=== PATIENT | female | born 1950 | race Caucasian/White ===

== ENCOUNTER 2016-09-25 08:46 | Emergency (ER) | payer BC ==
[2016-09-25 09:03] VITALS: BP 126/69; PULSE 73; TEMP 98; BMI 21.2
--- NOTE | 2016-09-25 09:53 | PDOC ---
History of Present Illness - General History Source: Patient, Old Records Exam Limitations: No Limitations <Jamilah Dia - Last Filed: 09/25/16 09:49> - History of Present Illness Initial Comments: 09/25/16 10:11 Patient is a 66 year old female with significant medical hx of asthma and allergies who is presenting to the ED with seven months of full body rash and six weeks of facial rash. The patient reports shes had an itching, full body rash for the past seven months that erupts as patchy, circular areas of inflammation and irritation. She states that shes been followed by an card brusher and has had multiple tests done that were negative. The patient notes that she is trying an elimination diet to help pinpoint the source of her rash. Patient also complains of an itching rash to her face that began six weeks ago. It started as a localized area to the bridge of her nose, beneath where her glasses rest on her face. She states that she went through a two week course of medication given by her loin trimmer which relieved her symptoms temporarily. Her rash beneath her nose returned a few days later and she also developed an area of rash to left maxilla, which was not there before. The patient is followed closely by her loin trimmer and has been seen by him yesterday. She began a course of valtrex that she did for three days and stopped due to side effects. Patient states she has been given a cream treatment afterwards by loin trimmer that she plans on starting today. She notes that she is going to follow up with him on Saturday. Denies any fever, chills. Drawer Maker: Aashish Velasquez MD <Corinne Weldon - Last Filed: 09/25/16 10:27> - General Chief Complaint: Redness To Affected Area Stated Complaint: SWELLING ON EYE/FACE, RED SPOTS Time Seen by Provider: 09/25/16 09:36 Past History - Past Medical History Asthma: Yes Cardiac Disorders: Yes (mvp) Other medical history: allergies,tinitis,eczema - Surgical History Abdominal Surgery: Yes (lt ovary,mass,laproscopic) - Psycho/Social/Smoking Cessation Hx Anxiety: No Suicidal Ideation: No Smoking History: Former smoker Have you smoked in the past 12 months: No Information on smoking cessation initiated: No Hx Alcohol Use: No Drug/Substance Use Hx: No Substance Use Type: None <Jamilah Dia - Last Filed: 09/25/16 09:49> <Corinne Weldon - Last Filed: 09/25/16 10:27> - Past Medical History Allergies/Adverse Reactions: Allergies Allergy/AdvReac Type Severity Reaction Status Date / Time amoxicillin Allergy Verified 09/25/16 08:57 amoxicillin trihydrate Allergy Verified 09/25/16 08:57 [From Augmentin] clotrimazole Allergy Verified 09/25/16 08:57 erythromycin base Allergy Verified 09/25/16 08:57 fluticasone propionate Allergy Verified 09/25/16 08:57 [From Advair Diskus] hydrochlorothiazide Allergy Verified 09/25/16 08:57 [From Dyazide] indomethacin Allergy Verified 09/25/16 08:57 levofloxacin [From Levaquin] Allergy Verified 09/25/16 08:57 mometasone furoate Allergy Verified 09/25/16 08:57 [From Nasonex] montelukast sodium Allergy Verified 09/25/16 08:57 [From Singulair] potassium clavulanate Allergy Verified 09/25/16 08:57 [From Augmentin] prednisone Allergy Verified 09/25/16 08:57 salmeterol xinafoate Allergy Verified 09/25/16 08:57 [From Advair Diskus] triamterene [From Dyazide] Allergy Verified 09/25/16 08:57 valacyclovir Allergy Verified 09/25/16 08:57 Home Medications: Ambulatory Orders Mupirocin Cream [Bactroban 2% Cream -] 1 applic TID 09/25/16 Review of Systems - Review of Systems Comments:: 09/25/16 10:13 GENERAL/CONSTITUTIONAL: No fever or chills. No weakness. HEAD, EYES, EARS, NOSE AND THROAT: No change in vision. No ear pain or discharge. No sore throat. CARDIOVASCULAR: No chest pain or shortness of breath. RESPIRATORY: No cough, wheezing, or hemoptysis. GASTROINTESTINAL: No nausea, vomiting, diarrhea or constipation. GENITOURINARY: No dysuria, frequency, or change in urination. MUSCULOSKELETAL: No joint or muscle swelling or pain. No neck or back pain. ENDOCRINE: No increased thirst. No abnormal weight change. SKIN: Itching rash to face, torso, and extremities. NEUROLOGIC: No headache, vertigo, loss of consciousness, or change in strength/ sensation. <Corinne Weldon - Last Filed: 09/25/16 10:27> *Physical Exam - Vital Signs Last Vital Signs Temp Pulse Resp BP Pulse Ox 98.0 F 73 18 126/69 100 09/25/16 08:58 09/25/16 08:58 09/25/16 08:58 09/25/16 08:58 09/25/16 08:58 <Jamilah Dia - Last Filed: 09/25/16 09:49> - Vital Signs Last Vital Signs Temp Pulse Resp BP Pulse Ox 98.0 F 73 18 126/69 100 09/25/16 08:58 09/25/16 08:58 09/25/16 08:58 09/25/16 08:58 09/25/16 08:58 - Physical Exam Comments: 09/25/16 10:14 GENERAL: Awake, alert, and fully oriented, in no acute distress HEAD: No signs of trauma EYES: PERRLA, EOMI, sclera anicteric, conjunctiva clear ENT: Auricles normal inspection, hearing grossly normal, nares patent, oropharynx clear without exudates. Moist mucosa NECK: Normal ROM, supple, no lymphadenopathy, JVD, or masses LUNGS: Breath sounds equal, clear to auscultation bilaterally. No wheezes, and no crackles HEART: Regular rate and rhythm, normal S1 and S2, no murmurs, rubs or gallops ABDOMEN: Soft, nontender, normoactive bowel sounds. No guarding, no rebound. No masses EXTREMITIES: Normal range of motion, no edema. No clubbing or cyanosis. No cords, erythema, or tenderness NEUROLOGICAL: Cranial nerves II through XII grossly intact. Normal speech, normal gait SKIN: Warm, Dry, normal turgor. Patchy, circular raised lesions that appeared scaly on her extremities and torso. Erythematous raised confluent lesion to the bridge of the nose. Left maxilla erythema with mild induration and edema. Two small areas of erythema and excoriation under the nose. HEMATOLOGIC/LYMPHATIC: No anemia, easy bleeding, or history of blood clots. ALLERGIC/IMMUNOLOGIC: No hives or skin allergy. <FatemehCorinne - Last Filed: 09/25/16 10:27> Medical Decision Making - Medical Decision Making 09/25/16 09:49 66 y/o female with h/o asthma and multiple allergies presents to the ED with chronic pruritic patchy rash to her body and 6-week h/o rash to her nose and recent breakout on her left maxilla. DDx includes but is not limited to: herpes simplex, staph, non-specific skin eruption. Plan: 1. Recommended claritin or benadryl and claritin 2. Follow-up with loin trimmer 3. Return to the ED if Sx persist, worsen or new Sx arise. <Jamilah Dia - Last Filed: 09/25/16 09:49> *DC/Admit/Observation/Transfer - Discharge Dispostion Admit: No - Attestations Physician Attestion: 09/25/16 09:52 I, Dr. Jamilah Dia, attest that the scribes documentation that appears above has been prepared under my direction and personally reviewed by me in its entirety. I confirmed that the note above accurately reflects all work, treatment, procedures, and medical decision-making performed by me. <Jamilah Dia - Last Filed: 09/25/16 09:49> - Attestations Scribe Attestion: 09/25/16 10:27 Documentation prepared by Corinne Weldon, acting as medical receptionist biller for Jamilah Dia MD. <Corinne Weldon - Last Filed: 09/25/16 10:27> Diagnosis at time of Disposition: Rash and nonspecific skin eruption - Referrals Referrals: Aniket Hatch [Primary Care Provider] - - Patient Instructions Additional Instructions: Follow-up with loin trimmer. You may take claritin or benadryl as needed for itchiness or swelling. Return to the ED if your symptoms persist, worsen or new symptoms arise. Print Language: ANGUILLAN
== END 2016-09-25 10:05 | disposition home or self-care (01) ==
LOC: JER 08:46 → EDBD 08:46 → JER 10:05
DX: R21 Rash and other nonspecific skin eruption (principal); J45.909 Unspecified asthma, uncomplicated; Z87.891 Personal history of nicotine dependence
CPT/HCPCS: 99281-25

== ENCOUNTER 2016-12-18 09:35 | Emergency (ER) | payer BC ==
[2016-12-18 09:52] VITALS: BMI 21.7
[2016-12-18] MEDS ORDERED: ONDANSETRON 4 MG/2 ML VIAL IVPUSH ONE (10:05)
--- NOTE | 2016-12-18 10:05 | PDOC ---
History of Present Illness - General Chief Complaint: Lightheaded Stated Complaint: VOMITING/vertigo Time Seen by Provider: 12/18/16 09:57 History Source: Patient Exam Limitations: No Limitations - History of Present Illness Initial Comments: This is a 66 yof with h/o right ear Meniere's disease, tinnitus, asthma, mitral valve prolapse, eosinophilic esophagitis, and hypoglycemia who presents with vertigo and nausea worsening since she awoke this morning. The symptoms were tolerable when she awoke and she had breakfast and drove to work. While at work , the dizziness worsened significantly and she developed nausea and vomiting to the point where a friend had to drive her here to the ED. She states that this is the worst episode of vertigo she has ever had. She describes imbalance isolated to the right side of her body, from the top of her head to her mid- abdomen. She additionally notes rapid palpitations and cold sweats this morning , but denies any headache, vision changes, confusion, trouble speaking/ swallowing, trouble walking before the symptoms worsened at work, chest pain, shortness of breath, abdominal pain, or other symptoms. Past History - Past Medical History Allergies/Adverse Reactions: Allergies Allergy/AdvReac Type Severity Reaction Status Date / Time amoxicillin Allergy Verified 12/18/16 09:48 amoxicillin trihydrate Allergy Verified 12/18/16 09:48 [From Augmentin] clotrimazole Allergy Verified 12/18/16 09:48 erythromycin base Allergy Verified 12/18/16 09:48 fluticasone propionate Allergy Verified 12/18/16 09:48 [From Advair Diskus] hydrochlorothiazide Allergy Verified 12/18/16 09:48 [From Dyazide] indomethacin Allergy Verified 12/18/16 09:48 levofloxacin [From Levaquin] Allergy Verified 12/18/16 09:48 mometasone furoate Allergy Verified 12/18/16 09:48 [From Nasonex] montelukast sodium Allergy Verified 12/18/16 09:48 [From Singulair] potassium clavulanate Allergy Verified 12/18/16 09:48 [From Augmentin] prednisone Allergy Verified 12/18/16 09:48 salmeterol xinafoate Allergy Verified 12/18/16 09:48 [From Advair Diskus] triamterene [From Dyazide] Allergy Verified 12/18/16 09:48 valacyclovir Allergy Verified 12/18/16 09:48 Home Medications: Ambulatory Orders Mupirocin Cream [Bactroban 2% Cream -] 1 applic TID 09/25/16 Ondansetron [Zofran Odt -] 4 mg SL TID PRN #21 od.tablet 12/18/16 Asthma: Yes Cardiac Disorders: Yes (mvp) Other medical history: tinnitis, minire's disease - Surgical History Abdominal Surgery: Yes (lt ovary,mass,laproscopic) - Suicide/Smoking/Psychosocial Hx Smoking History: Former smoker Have you smoked in the past 12 months: No Information on smoking cessation initiated: No Hx Alcohol Use: No Drug/Substance Use Hx: No Substance Use Type: None Review of Systems - Review of Systems Constitutional: No: Chills, Fever, Unexplained wgt Loss HEENTM: No: Nose Congestion, Throat Pain Respiratory: No: Cough, Shortness of Breath Cardiac (ROS): No: Chest Pain, Palpitations ABD/GI: No: Constipated, Diarrhea, Nausea, Vomiting : No: Burning, Dysuria Musculoskeletal: No: Back Pain, Neck Pain Integumentary: No: Bruising, Rash Neurological: No: Headache, Numbness, Tingling, Weakness, Dizziness Endocrine: No: Unexplained Weight Gain, Unexplained Weight Loss *Physical Exam - Vital Signs Last Vital Signs Temp Pulse Resp BP Pulse Ox 97.4 F L 59 L 18 135/81 100 12/18/16 09:49 12/18/16 09:49 12/18/16 09:49 12/18/16 09:49 12/18/16 09:49 - Physical Exam General Appearance: Yes: Nourished, Appropriately Dressed, Moderate Distress, Other (nontoxic appearing, uncomfortable, laying on hospital bed with head of bed up, eyes closed, holding head in hand, answering questions appropriately) HEENT: positive: EOMI, Normal Voice, Hearing Grossly Normal. negative: Scleral Icterus (R), Scleral Icterus (L), Nasal Congestion Neck: positive: Trachea midline, Supple. negative: Tender, Rigid Respiratory/Chest: positive: Lungs Clear, Normal Breath Sounds. negative: Respiratory Distress, Crackles, Rhonchi, Stridor, Wheezing Cardiovascular: positive: Regular Rhythm, Regular Rate. negative: Murmur Gastrointestinal/Abdominal: positive: Normal Bowel Sounds, Soft. negative: Tender, Organomegaly, Pulsatile Mass, Guarding Musculoskeletal: positive: Normal Inspection. negative: Decreased Range of Motion, Vertebral Tenderness Extremity: positive: Normal Capillary Refill, Normal Inspection, Normal Range of Motion. negative: Tender, Cyanosis Integumentary: positive: Normal Color, Dry, Warm. 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 negative: Facial Droop, Numbness, Sensory Deficit, Confused, Disoriented Heart Score/ECG Review #1 ECG reviewed & interpreted by me at: 11:45 Sinus rhythm, rate of 66, with normal axis and intervals, otherwise normal EKG. ED Treatment Course - LABORATORY CBC & Chemistry Diagram: 12/18/16 11:02 12/18/16 11:02 - ADDITIONAL ORDERS Additional order review: Laboratory Results 12/18/16 12/18/16 11:02 10:23 Sodium 141 Potassium 3.6 Chloride 105 Carbon Dioxide 30 Anion Gap 6 L POC Glucometer 122.46963 Calcium 9.3 Magnesium 2.3 Total Bilirubin 0.6 AST 26 Alkaline Phosphatase 60 Total Protein 6.4 Albumin 3.7 12/18/16 12/18/16 11:02 10:23 RBC 4.77 MCV 87.9 MCHC 33.1 RDW 13.5 MPV 10.3 Neutrophils % 72.7 Lymphocytes % 19.3 Monocytes % 6.6 Eosinophils % 1.0 Basophils % 0.4 POC Glucometer 122.41401 - Medications Given in the ED: ED Medications Discontinued Medications Generic Name Dose Route Start Last Admin Trade Name Freq PRN Reason Stop Dose Admin Diazepam 2 mg 12/18/16 10:06 12/18/16 10:16 Valium Injection - IVPUSH 12/18/16 10:07 2 mg ONCE ONE Administration Sodium Chloride 1,000 mls @ 1,000 mls/hr 12/18/16 10:46 12/18/16 11:03 Normal Saline - IV 12/18/16 11:45 1,000 mls/hr ASDIR STA Administration Meclizine HCl 50 mg 12/18/16 12:00 12/18/16 12:19 Antivert - PO 12/18/16 12:01 50 mg ONCE ONE Administration Ondansetron HCl 8 mg 12/18/16 10:05 12/18/16 10:16 Zofran Injection IVPUSH 12/18/16 10:06 8 mg ONCE ONE Administration Medical Decision Making - Medical Decision Making 66 yof with 20 yr h/o Meniere's disease p/w vertigo and nausea/vomiting. Had vinegar over the weekend which is one trigger for her Meniere's flares. Last head CT for a similar flare was about 5 years ago and was normal per Pt's report. On neurologic exam the only abnormality is sustained horizontal nystagmus on extreme right gaze. Pt does have moderate relief of symptoms after IV Valium and IV Zofran. DDX: Meniere's flare, BPPV, post viral vertigo, labyrithitis. The patient has significant relief with zofran and meclizine. Attempted to call Dr. Claudio (Pt's ENT in [place]) but he was at lunch. The patient feels comfortable with the plan to follow up closely with him and with PCP. Rx is sent for Zofran to Pt's pharmacy, she will pick up man OTC Zofran as well. She is able to walk to the restroom unassisted. Return precautions are discussed. A friend will drive her home; she is discharged from the ED. *DC/Admit/Observation/Transfer Diagnosis at time of Disposition: Meniere disease Qualifiers: Laterality: right Qualified Code(s): H81.01 - Meniere's disease, right ear - Discharge Dispostion Admit: No - Prescriptions Prescriptions: Ondansetron [Zofran Odt -] 4 mg SL TID PRN #21 od.tablet PRN Reason: Nausea - Referrals Referrals: Aniket Hatch [Primary Care Provider] - - Patient Instructions Printed Discharge Instructions: DI for Meniere's Disease Additional Instructions: You were seen in the emergency room for vertigo and nausea/vomiting. This appears to be an exacerbation of your Meniere's disease. We did blood work and an electrocardiogram, and everything was normal. We also gave you IV valium ( which did not help your symptoms) and IV Zofran (which did help with the nausea/ vomiting). Lastly, we gave you a pill of meclizine (50mg) which also helped with your vertigo. Please take zofran as needed for nausea/vomiting according to the prescription instructions. Please also try meclizine (the non-drowsy formula of Dramamine) which is available [id number]. You can take 50 mg of meclizine. Please follow up with your ENT doctor or primary care doctor. You can always return to the ED for new or worsening symptoms.
[2016-12-18] MEDS ORDERED: diazePAM CARPU-JECT 10 MG/2 ML DISP.SYRIN IVPUSH ONE (10:06)
[2016-12-18] MEDS ORDERED: diazePAM CARPU-JECT 10 MG/2 ML DISP.SYRIN ONE (10:10)
[2016-12-18] MEDS ORDERED: ONDANSETRON 4 MG/2 ML VIAL ONE (10:10)
[2016-12-18] MEDS ORDERED: SODIUM CHLORIDE 1,000 ML IV STA (10:46)
[2016-12-18 11:08] LABS: BASOPHIL 0.4 % (0-2.0); MCH 29.1 pg (25.7-33.7); MCHC 33.1 g/dl (32.0-36.0); MEAN CELL VOLUME 87.9 fl (80-96); MEAN PLT VOLUME 10.3 fl (7.5-11.1); NEUTROPHILS 72.7 % (42.8-82.8); PLATELET COUNT 187 K/MM3 (134-434); RDW 13.5 % (11.6-15.6); WHITE BLOOD COUNT 8.8 K/mm3 (4.0-10.0)
[2016-12-18 11:49] LABS: ALBUMIN 3.7 g/dl (3.4-5.0)
--- NOTE | 2016-12-18 11:56 | PDOC ---
Attending Attestation - Resident Resident Name: DanielsPrecious - ED Attending Attestation I have performed the following: I have examined & evaluated the patient, The case was reviewed & discussed with the resident, I agree w/resident's findings & plan, Exceptions are as noted - HPI HPI: 12/18/16 11:53 66-year-old female with history of multiple environmental and food ALLERGIES, eosinophilic esophagitis, and Mnire's disease presents with vertigo and nausea /vomiting typical of her Mnire's exacerbations. Likely prompted by diet indiscretions over the weekend, denies any head injury or headache or vision change or speech change or focal deficit. Has had normal CAT scans and MRIs in the past, is followed by ENT in [place]. Patient was on a steroid taper that was completed 2 weeks ago, easily started taking B12 supplements 48 hours ago, otherwise denies any medication changes. - Physicial Exam PE: 12/18/16 11:54 afebrile. Vital signs as noted. Neurological exam is nonfocal except for slight horizontal nystagmus but there is no ataxia or dysmetria or focal weakness - Medical Decision Making 12/18/16 11:54 Patient seen and evaluated with the resident. I agree with the overall evaluation, assessment, and management with the following summary of visit: 66-year-old female presents with painless dizziness and vomiting consistent with past Mnire's exacerbations. 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 IV was placed for symptom management, improved slightly with Valium and Zofran IV fluids EKG, labs Reassess. Discuss plan with patient ENT specialist Heart Score/ECG Review #1 ECG reviewed & interpreted by me at: 11:43 General ECG Interpretation: Sinus Rhythm, Normal Rate (66), Normal Intervals ( qtc 434), No acute ischemic changes
[2016-12-18] MEDS ORDERED: MECLIZINE HCL 25 MG TABLET (FP) PO ONE (12:00)
[2016-12-18 12:06] LABS: ANION GAP 6 (8-16); CALCIUM 9.3 mg/dL (8.5-10.1); CO2 30 mmol/L (21-32); MAGNESIUM 2.3 mg/dL (1.8-2.4)
[2016-12-18 12:08] LABS: SGOT/AST 26 U/L (15-37)
[2016-12-18 12:10] LABS: ALK PHOS 60 U/L (45-117); BILIRUBIN,TOTAL 0.6 mg/dL (0.2-1.0); TOT PROT 6.4 g/dl (6.4-8.2)
[2016-12-18] MEDS ORDERED: MECLIZINE HCL 25 MG TABLET (FP) ONE (12:19)
[2016-12-18 13:12] VITALS: BP 106/68; PULSE 66; TEMP 98
[2016-12-18 14:08] LABS: CREATININE 0.7 mg/dL (0.55-1.02); GLUCOSE,RANDOM 118 mg/dL (74-106); PHOSPHOROUS 3.6 mg/dL (2.5-4.9); SGPT/ALT 25 U/L (12-78)
--- NOTE | 2016-12-18 20:26 | EKG ---
Test Reason : Blood Pressure : / mmHG Vent. Rate : 066 BPM Atrial Rate : 066 BPM P-R Int : 174 ms QRS Dur : 086 ms QT Int : 414 ms P-R-T Axes : 073 027 058 degrees QTc Int : 434 ms NORMAL SINUS RHYTHM SLOW R WAVE PROGRESSION V1-V3 ABNORMAL ECG NO PREVIOUS ECGS AVAILABLE REPEAT EKG IF CLINICALLY INDICATED Confirmed by SANDHYA HOWELL MD ([id number]) on 12/18/2016 8:26:29 PM Referred By: Confirmed By:SANDHYA HOWELL MD
== END 2016-12-18 13:12 | disposition home or self-care (01) ==
LOC: JER 09:35
PROC: 3E0337Z Introduction of Electrolytic and Water Balance Substance into Peripheral Vein, Percutaneous Approach (ICD-10-PCS; principal; 2016-12-18)
PROC: 3E033GC Introduction of Other Therapeutic Substance into Peripheral Vein, Percutaneous Approach (ICD-10-PCS; 2016-12-18)
DX: H81.01 Meniere's disease, right ear (principal); J45.909 Unspecified asthma, uncomplicated; I34.1 Nonrheumatic mitral (valve) prolapse; Z87.891 Personal history of nicotine dependence
CPT/HCPCS: 36415; 80053; 83735; 84100; 85025; 93005; 93010; 99283-25